=== PATIENT | male | born 1965 | race Caucasian/White ===

== ENCOUNTER 2021-12-25 16:20 | Inpatient (IN) | payer OTHER ==
[2021-12-25 17:54] VITALS: BMI 20.7
[2021-12-25] MEDS ORDERED: IBUPROFEN 400 MG TABLET (FP) PO PRN (22:12)
[2021-12-25] MEDS ORDERED: MAGNESIUM CITRATE 300 ML BOTTLE PO PRN (22:12)
[2021-12-25] MEDS ORDERED: hydrOXYzine PAMOATE 25 MG CAPSULE (FP) PO PRN (22:12)
[2021-12-25] MEDS ORDERED: BENZOCAINE/MENTHOL (CHLORASEPTIC ) LOZENGE MM PRN (22:12)
[2021-12-25] MEDS ORDERED: MAG HYDROX/AL HYDROX/SIMETH 30 ML UNIT-DOSE CUP PO PRN (22:12)
[2021-12-25] MEDS ORDERED: P-EPHED 60MG/TRIPROLIDI 2.5MG TABLET PO PRN (22:12)
[2021-12-25] MEDS ORDERED: MAGNESIUM HYDROX 2400MG/30ML ORAL SUSPENSION 30 ML CUP PO PRN (22:12)
[2021-12-25] MEDS ORDERED: LOPERAMIDE HCL 2 MG CAPSULE PO PRN (22:12)
[2021-12-25] MEDS ORDERED: NICOTINE 10 MG CARTRIDGE (INHALER) IH PRN (22:12)
[2021-12-25] MEDS ORDERED: ACETAMINOPHEN 325 MG TABLET (FP) PO PRN (22:12)
[2021-12-25] MEDS ORDERED: guaiFENesin 200 MG/10 ML 10 ML UNIT-DOSE CUPS PO PRN (22:12)
[2021-12-25] MEDS ORDERED: NICOTINE POLACRILEX 2 MG GUM BC PRN (22:12)
[2021-12-25] MEDS ORDERED: MELATONIN 5 MG TABLETS PO PRN (22:12)
[2021-12-26 00:38] VITALS: RESP 16
[2021-12-26] MEDS ORDERED: methaDONE HCL 10 MG TABLET PO SCH (09:45)
[2021-12-26] MEDS: PRENATAL VITAMINS W/ FOLIC ACID TABLET (FP) PO SCH (10:18)
[2021-12-26] MEDS: methaDONE 40 MG, methaDONE 20 MG PO SCH (10:19)
[2021-12-26] MEDS: THIAMINE HCL 100 MG TABLET (FP) PO SCH (21:50)
[2021-12-26] MEDS: traZODone HCL 50 MG TABLET (FP) PO SCH (21:50)
[2021-12-26] MEDS: risperiDONE 1 MG TABLET PO SCH (21:50)
[2021-12-27] MEDS: methaDONE 40 MG, methaDONE 20 MG PO SCH (07:40)
[2021-12-27] MEDS: PRENATAL VITAMINS W/ FOLIC ACID TABLET (FP) PO SCH (10:30)
[2021-12-27] MEDS ORDERED: TUBERCULIN PPD 5 TU/0.1ML VIAL ID ONE (12:45)
[2021-12-27 21:00] VITALS: TEMP 98.4
[2021-12-27] MEDS: traZODone HCL 50 MG TABLET (FP) PO SCH (21:52)
[2021-12-27] MEDS: THIAMINE HCL 100 MG TABLET (FP) PO SCH (21:53)
[2021-12-27] MEDS: risperiDONE 1 MG TABLET PO SCH (21:53)
[2021-12-28 06:52] VITALS: BP 109/74; PULSE 65
[2021-12-28] MEDS: methaDONE 40 MG, methaDONE 20 MG PO SCH (07:10)
[2021-12-28] MEDS: PRENATAL VITAMINS W/ FOLIC ACID TABLET (FP) PO SCH (09:44)
[2021-12-28] MEDS ORDERED: PRENATAL VITAMINS W/ FOLIC ACID TABLET (FP) PO PRN (10:14)
== END 2021-12-28 11:10 | disposition left against medical advice (07) | DRG 770 ==
LOC: YASAS 16:20 → Y3E 23:08
PROVIDERS: ADMIT Allergy & Immunology; ATTEND Psychiatry & Neurology Pain Medicine
PROC: HZ42ZZZ Group Counseling for Substance Abuse Treatment, Cognitive-Behavioral (ICD-10-PCS; principal; 2021-12-25)
DX: F11.20 Opioid dependence, uncomplicated (principal); F14.20 Cocaine dependence, uncomplicated; F17.210 Nicotine dependence, cigarettes, uncomplicated; F20.9 Schizophrenia, unspecified; F19.282 Other psychoactive substance dependence with psychoactive substance-induced sleep disorder; F19.24 Other psychoactive substance dependence with psychoactive substance-induced mood disorder; B18.2 Chronic viral hepatitis C; Z86.19 Personal history of other infectious and parasitic diseases; Z86.69 Personal history of other diseases of the nervous system and sense organs; Z91.51 Personal history of suicidal behavior; Z28.310 Unvaccinated for COVID-19; Z28.9 Immunization not carried out for unspecified reason; Z56.0 Unemployment, unspecified; Z59.01 Sheltered homelessness
CPT/HCPCS: C9803-CS; J2794; U0003; U0005

== ENCOUNTER 2022-08-05 13:05 | Inpatient (IN) | payer OTHER ==
[2022-08-05 14:11] VITALS: BMI 24.3
[2022-08-05] MEDS ORDERED: NICOTINE 10 MG CARTRIDGE (INHALER) IH PRN (14:54)
[2022-08-05] MEDS ORDERED: guaiFENesin 600 MG TABLET.ER (FP) PO PRN (14:54)
[2022-08-05] MEDS ORDERED: AMMONIUM LACTATE 12% LOTION 225 GM BOTTLE TP PRN (14:54)
[2022-08-05] MEDS ORDERED: IBUPROFEN 400 MG TABLET (FP) PO PRN (14:54)
[2022-08-05] MEDS ORDERED: LOPERAMIDE HCL 2 MG CAPSULE PO PRN (14:54)
[2022-08-05] MEDS ORDERED: NALOXONE HCL (KLOXXADO) 8 MG SPRAY NS PRN (14:54)
[2022-08-05] MEDS ORDERED: BENZOCAINE/MENTHOL (CHLORASEPTIC ) LOZENGE MM PRN (14:54)
[2022-08-05] MEDS ORDERED: hydrOXYzine PAMOATE 25 MG CAPSULE (FP) PO PRN (14:54)
[2022-08-05] MEDS ORDERED: NALOXONE HCL 0.4 MG/ML VIAL IM PRN (14:54)
[2022-08-05] MEDS ORDERED: MAGNESIUM HYDROX 2400MG/30ML ORAL SUSPENSION 30 ML CUP PO PRN (14:54)
[2022-08-05] MEDS ORDERED: BENZONATATE 200 MG CAPSULE PO PRN (14:54)
[2022-08-05] MEDS ORDERED: ACETAMINOPHEN 325 MG TABLET (FP) PO PRN (14:54)
[2022-08-05] MEDS ORDERED: POLYETHYLENE GLYCOL (HEALTHYLAX) 3350 17 GM PACKET PO PRN (14:54)
[2022-08-05] MEDS ORDERED: COLLOIDAL OATMEAL 1 BAR EACH TP PRN (14:54)
[2022-08-05] MEDS ORDERED: MAG HYDROX/AL HYDROX/SIMETH 30 ML UNIT-DOSE CUP PO PRN (14:54)
[2022-08-05] MEDS ORDERED: NICOTINE POLACRILEX 2 MG GUM BUC PRN (14:54)
[2022-08-05] MEDS: THIAMINE HCL 100 MG TABLET (FP) PO SCH (21:33)
[2022-08-05] MEDS ORDERED: MELATONIN 5 MG TABLETS PO SCH (22:00)
[2022-08-06] MEDS ORDERED: methaDONE HCL 10 MG TABLET PO SCH (08:15)
[2022-08-06] MEDS: methaDONE 40 MG, methaDONE 30 MG PO SCH (09:46)
[2022-08-06] MEDS ORDERED: PRENATAL VITAMINS W/ FOLIC ACID TABLET (FP) PO SCH (10:00)
[2022-08-06] MEDS ORDERED: PRENATAL VITAMINS W/ FOLIC ACID TABLET (FP) PO PRN (10:36)
[2022-08-06 10:50] LABS: HEMATOCRIT 37.4 % (35.4-49); HEMOGLOBIN 12.9 GM/dL (11.7-16.9); MCH 30.4 pg (25.7-33.7); MCHC 34.4 g/dl (32.0-35.9); MEAN CELL VOLUME 88.3 fl (80-96); MEAN PLT VOLUME 8.3 fl (7.5-11.1); PLATELET COUNT 325 10^3/uL (134-434); RBC 4.23 M/mm3 (4.00-5.60); RDW 13.4 % (11.9-15.9); WHITE BLOOD COUNT 6.7 K/mm3 (4.0-10.0)
[2022-08-06 10:57] LABS: POTASSIUM 4.8 mmol/L (3.5-5.1)
[2022-08-06 11:02] LABS: ALBUMIN 2.9 g/dl (3.4-5.0); BLOOD UREA NITROGEN 13.1 mg/dL (7-18); CALCIUM 9.2 mg/dL (8.5-10.1)
[2022-08-06 11:05] LABS: CREATININE 0.9 mg/dL (0.55-1.3)
[2022-08-06 11:07] LABS: BILIRUBIN,TOTAL 0.6 mg/dL (0.2-1)
[2022-08-06 11:22] LABS: SYPHILIS W/ RPR CONF NON-REACTIVE (NONREACTIVE)
[2022-08-06] MEDS: THIAMINE HCL 100 MG TABLET (FP) PO SCH (21:33)
[2022-08-06] MEDS ORDERED: traZODone HCL 50 MG TABLET (FP) PO PRN (22:00)
[2022-08-07] MEDS: methaDONE 40 MG, methaDONE 30 MG PO SCH (07:02)
[2022-08-07] MEDS: THIAMINE HCL 100 MG TABLET (FP) PO SCH (21:51)
[2022-08-08] MEDS: methaDONE 40 MG, methaDONE 30 MG PO SCH (06:36)
[2022-08-08] MEDS: THIAMINE HCL 100 MG TABLET (FP) PO SCH (22:45)
[2022-08-09] MEDS: methaDONE 40 MG, methaDONE 30 MG PO SCH (06:21)
[2022-08-09] MEDS: IBUPROFEN 600 MG TABLET (FP) PO PRN (09:41)
[2022-08-09] MEDS: THIAMINE HCL 100 MG TABLET (FP) PO SCH (22:22)
[2022-08-10] MEDS: methaDONE 40 MG, methaDONE 30 MG PO SCH (06:16)
[2022-08-10] MEDS: CLINDAMYCIN PHOSPHATE 1% TOPICAL GEL 30 GM TUBE TP SCH ×2 (11:50→22:45)
[2022-08-10 15:30] LABS: PH,URINE 5.5 (5.0-8.0); URINE APPEARANCE CLEAR; URINE BILIRUBIN NEGATIVE (NEGATIVE); URINE COLOR YELLOW; URINE GLUCOSE (UA) NEGATIVE (NEGATIVE); URINE KETONE NEGATIVE (NEGATIVE); URINE LEUK ESTERASE NEGATIVE (NEGATIVE); URINE NITRITE NEGATIVE (NEGATIVE); URINE PROTEIN NEGATIVE (NEGATIVE); URINE UROBILINOGEN 0.2 mg/dL (0.2-1.0)
[2022-08-10] MEDS: THIAMINE HCL 100 MG TABLET (FP) PO SCH (22:45)
[2022-08-11] MEDS: methaDONE 40 MG, methaDONE 30 MG PO SCH (06:10)
[2022-08-11] MEDS: IBUPROFEN 600 MG TABLET (FP) PO PRN ×2 (07:04→19:55)
[2022-08-11] MEDS: CLINDAMYCIN PHOSPHATE 1% TOPICAL GEL 30 GM TUBE TP SCH ×2 (09:46→21:48)
[2022-08-11] MEDS: THIAMINE HCL 100 MG TABLET (FP) PO SCH (21:48)
[2022-08-12] MEDS: methaDONE 40 MG, methaDONE 30 MG PO SCH (06:01)
[2022-08-12 06:32] VITALS: RESP 16
[2022-08-12] MEDS: CLINDAMYCIN PHOSPHATE 1% TOPICAL GEL 30 GM TUBE TP SCH ×2 (10:09→21:29)
[2022-08-12] MEDS: IBUPROFEN 600 MG TABLET (FP) PO PRN (13:55)
[2022-08-12] MEDS: THIAMINE HCL 100 MG TABLET (FP) PO SCH (21:29)
[2022-08-13] MEDS: methaDONE 40 MG, methaDONE 30 MG PO SCH (06:12)
[2022-08-13 06:38] VITALS: BP 115/75; PULSE 58; TEMP 97.7
[2022-08-13] MEDS: CLINDAMYCIN PHOSPHATE 1% TOPICAL GEL 30 GM TUBE TP SCH (09:05)
== END 2022-08-13 10:29 | disposition home or self-care (01) | DRG 772 ==
LOC: YASAS 13:05 → Y3E 14:41
PROVIDERS: ADMIT Allergy & Immunology; ATTEND Psychiatry & Neurology Pain Medicine
PROC: HZ42ZZZ Group Counseling for Substance Abuse Treatment, Cognitive-Behavioral (ICD-10-PCS; principal; 2022-08-05)
DX: F11.20 Opioid dependence, uncomplicated (principal); F14.20 Cocaine dependence, uncomplicated; F17.210 Nicotine dependence, cigarettes, uncomplicated; F19.282 Other psychoactive substance dependence with psychoactive substance-induced sleep disorder; F19.24 Other psychoactive substance dependence with psychoactive substance-induced mood disorder; B18.2 Chronic viral hepatitis C; L97.928 Non-pressure chronic ulcer of unspecified part of left lower leg with other specified severity; L97.918 Non-pressure chronic ulcer of unspecified part of right lower leg with other specified severity; L08.9 Local infection of the skin and subcutaneous tissue, unspecified; M19.011 Primary osteoarthritis, right shoulder; Z86.59 Personal history of other mental and behavioral disorders; Z86.69 Personal history of other diseases of the nervous system and sense organs
CPT/HCPCS: 36415; 80053; 80185; 81003; 85027; 86780; 86803; 87522; C9803-CS; U0003; U0005

== ENCOUNTER 2023-03-31 14:01 | Inpatient (IN) | payer OTHER ==
[2023-03-31 16:03] VITALS: BMI 22.6
[2023-03-31] MEDS ORDERED: MAG HYDROX/AL HYDROX/SIMETH 30 ML UNIT-DOSE CUP PO PRN (19:05)
[2023-03-31] MEDS ORDERED: COLLOIDAL OATMEAL 1 BAR EACH TP PRN (19:05)
[2023-03-31] MEDS ORDERED: MAGNESIUM HYDROX 2400MG/30ML ORAL SUSPENSION 30 ML CUP PO PRN (19:05)
[2023-03-31] MEDS ORDERED: LOPERAMIDE HCL 2 MG CAPSULE PO PRN (19:05)
[2023-03-31] MEDS ORDERED: NALOXONE HCL 0.4 MG/ML VIAL IM PRN (19:05)
[2023-03-31] MEDS ORDERED: BENZONATATE 200 MG CAPSULE PO PRN (19:05)
[2023-03-31] MEDS ORDERED: guaiFENesin 600 MG TABLET.ER (FP) PO PRN (19:05)
[2023-03-31] MEDS ORDERED: hydrOXYzine PAMOATE 25 MG CAPSULE (FP) PO PRN (19:05)
[2023-03-31] MEDS ORDERED: BENZOCAINE/MENTHOL (CHLORASEPTIC ) LOZENGE MM PRN (19:05)
[2023-03-31] MEDS ORDERED: NALOXONE HCL (KLOXXADO) 8 MG SPRAY NS PRN (19:05)
[2023-03-31] MEDS ORDERED: POLYETHYLENE GLYCOL (HEALTHYLAX) 3350 17 GM PACKET PO PRN (19:05)
[2023-04-01] MEDS: MELATONIN 5 MG TABLETS PO SCH ×2 (02:03→22:01)
[2023-04-01] MEDS: THIAMINE HCL 100 MG TABLET (FP) PO SCH ×2 (02:04→22:01)
[2023-04-01] MEDS: PRENATAL VITAMINS W/ FOLIC ACID TABLET (FP) PO SCH (10:21)
[2023-04-01] MEDS: methaDONE HCL 10 MG TABLET PO SCH (10:21)
[2023-04-01] MEDS ORDERED: TUBERCULIN PPD 5 TU/0.1ML VIAL ID ONE (10:56)
[2023-04-02] MEDS: methaDONE HCL 10 MG TABLET PO SCH (06:36)
[2023-04-02] MEDS: PRENATAL VITAMINS W/ FOLIC ACID TABLET (FP) PO SCH (10:15)
[2023-04-02 11:30] LABS: BASO % 0.7 % (0-2.0); EOS % 0.3 % (0-4.5); HEMATOCRIT 40.7 % (35.4-49); HEMOGLOBIN 13.6 GM/dL (11.7-16.9); LYMPH % 18.7 % (8-40); MCH 29.7 pg (25.7-33.7); MCHC 33.6 g/dl (32.0-35.9); MEAN CELL VOLUME 88.4 fl (80-96); MEAN PLT VOLUME 7.8 fl (7.5-11.1); MONO % 6.6 % (3.8-10.2); NEUT % 73.7 % (42.8-82.8); PLATELET COUNT 417 10^3/uL (134-434); WHITE BLOOD COUNT 8.1 K/mm3 (4.0-10.0)
[2023-04-02] MEDS: THIAMINE HCL 100 MG TABLET (FP) PO SCH (22:05)
[2023-04-02] MEDS: MELATONIN 5 MG TABLETS PO SCH (22:05)
[2023-04-03] MEDS: methaDONE HCL 10 MG TABLET PO SCH (06:12)
[2023-04-03] MEDS: ACETAMINOPHEN 325 MG TABLET (FP) PO PRN (06:13)
[2023-04-03] MEDS: IBUPROFEN 600 MG TABLET (FP) PO PRN (08:51)
[2023-04-03] MEDS: PRENATAL VITAMINS W/ FOLIC ACID TABLET (FP) PO SCH (10:04)
[2023-04-03 13:18] LABS: URINE APPEARANCE CLEAR; URINE BILIRUBIN 1+ (NEGATIVE); URINE COLOR DK YELLOW; URINE GLUCOSE (UA) NEGATIVE (NEGATIVE); URINE KETONE TRACE (NEGATIVE); URINE LEUK ESTERASE NEGATIVE (NEGATIVE); URINE NITRITE NEGATIVE (NEGATIVE); URINE PROTEIN TRACE (NEGATIVE)
[2023-04-03] MEDS: MELATONIN 5 MG TABLETS PO SCH (22:09)
[2023-04-03] MEDS: THIAMINE HCL 100 MG TABLET (FP) PO SCH (22:10)
[2023-04-04] MEDS: methaDONE HCL 10 MG TABLET PO SCH (06:10)
[2023-04-04] MEDS: IBUPROFEN 600 MG TABLET (FP) PO PRN (06:10)
[2023-04-04] MEDS: PRENATAL VITAMINS W/ FOLIC ACID TABLET (FP) PO SCH (10:52)
[2023-04-04] MEDS: ACETAMINOPHEN 325 MG TABLET (FP) PO PRN (14:59)
[2023-04-04] MEDS: MELATONIN 5 MG TABLETS PO SCH (21:40)
[2023-04-04] MEDS: THIAMINE HCL 100 MG TABLET (FP) PO SCH (21:40)
[2023-04-05] MEDS: IBUPROFEN 400 MG TABLET (FP) PO PRN (01:18)
[2023-04-05] MEDS: methaDONE HCL 10 MG TABLET PO SCH (06:19)
[2023-04-05] MEDS: IBUPROFEN 600 MG TABLET (FP) PO PRN ×3 (06:19→21:15)
[2023-04-05] MEDS: PRENATAL VITAMINS W/ FOLIC ACID TABLET (FP) PO SCH (10:26)
[2023-04-05] MEDS: TOLNAFTATE 1% CREAM 15 GM TUBE TP SCH ×2 (13:11→21:17)
[2023-04-05] MEDS: THIAMINE HCL 100 MG TABLET (FP) PO SCH (21:14)
[2023-04-05] MEDS: traZODone HCL 50 MG TABLET (FP) PO SCH (21:15)
[2023-04-05] MEDS: MELATONIN 5 MG TABLETS PO SCH (21:16)
[2023-04-05] MEDS ORDERED: traZODone HCL 100 MG TABLET (FP) PO SCH (22:00)
[2023-04-06] MEDS: IBUPROFEN 600 MG TABLET (FP) PO PRN ×2 (06:00→21:27)
[2023-04-06] MEDS: methaDONE HCL 10 MG TABLET PO SCH (06:00)
[2023-04-06] MEDS: PRENATAL VITAMINS W/ FOLIC ACID TABLET (FP) PO SCH (10:48)
[2023-04-06] MEDS: TOLNAFTATE 1% CREAM 15 GM TUBE TP SCH ×2 (10:48→21:26)
[2023-04-06] MEDS: MELATONIN 5 MG TABLETS PO SCH (21:26)
[2023-04-06] MEDS: traZODone HCL 50 MG TABLET (FP) PO SCH (21:26)
[2023-04-06] MEDS: THIAMINE HCL 100 MG TABLET (FP) PO SCH (21:26)
[2023-04-07] MEDS: methaDONE HCL 10 MG TABLET PO SCH (06:27)
[2023-04-07] MEDS: IBUPROFEN 400 MG TABLET (FP) PO PRN (06:27)
[2023-04-07] MEDS: PRENATAL VITAMINS W/ FOLIC ACID TABLET (FP) PO SCH (09:55)
[2023-04-07] MEDS: IBUPROFEN 600 MG TABLET (FP) PO PRN ×3 (09:55→21:29)
[2023-04-07] MEDS: TOLNAFTATE 1% CREAM 15 GM TUBE TP SCH ×2 (09:55→21:28)
[2023-04-07] MEDS: AMOX TR/POT CLAV 875MG/125MG TABLETS (FP) PO SCH (16:52)
[2023-04-07] MEDS: MELATONIN 5 MG TABLETS PO SCH (21:28)
[2023-04-07] MEDS: traZODone HCL 50 MG TABLET (FP) PO SCH (21:28)
[2023-04-07] MEDS: THIAMINE HCL 100 MG TABLET (FP) PO SCH (21:29)
[2023-04-08] MEDS: methaDONE HCL 10 MG TABLET PO SCH (06:02)
[2023-04-08] MEDS: IBUPROFEN 600 MG TABLET (FP) PO PRN (06:06)
[2023-04-08] MEDS: AMOX TR/POT CLAV 875MG/125MG TABLETS (FP) PO SCH ×2 (07:29→17:25)
[2023-04-08] MEDS ORDERED: HYDROCHLOROTHIAZIDE 12.5 MG CAPSULE (FP) PO SCH (10:00)
[2023-04-08] MEDS: TOLNAFTATE 1% CREAM 15 GM TUBE TP SCH ×2 (10:28→22:38)
[2023-04-08] MEDS: PRENATAL VITAMINS W/ FOLIC ACID TABLET (FP) PO SCH (10:28)
[2023-04-08] MEDS: HYDROCHLOROTHIAZIDE 12.5 MG CAPSULE (FP) PO SCH (10:28)
[2023-04-08] MEDS: IBUPROFEN 400 MG TABLET (FP) PO PRN (10:28)
[2023-04-08] MEDS: ACETAMINOPHEN 325 MG TABLET (FP) PO PRN (16:44)
[2023-04-08] MEDS: traZODone HCL 50 MG TABLET (FP) PO SCH (22:38)
[2023-04-08] MEDS: THIAMINE HCL 100 MG TABLET (FP) PO SCH (22:38)
[2023-04-08] MEDS: MELATONIN 5 MG TABLETS PO SCH (22:38)
[2023-04-09] MEDS: methaDONE HCL 10 MG TABLET PO SCH (06:04)
[2023-04-09] MEDS: IBUPROFEN 400 MG TABLET (FP) PO PRN (06:05)
[2023-04-09] MEDS: AMOX TR/POT CLAV 875MG/125MG TABLETS (FP) PO SCH ×2 (08:00→21:30)
[2023-04-09] MEDS: TOLNAFTATE 1% CREAM 15 GM TUBE TP SCH ×2 (10:51→21:31)
[2023-04-09] MEDS: PRENATAL VITAMINS W/ FOLIC ACID TABLET (FP) PO SCH (10:51)
[2023-04-09] MEDS: IBUPROFEN 600 MG TABLET (FP) PO PRN ×2 (10:52→21:32)
[2023-04-09] MEDS: HYDROCHLOROTHIAZIDE 12.5 MG CAPSULE (FP) PO SCH (11:22)
[2023-04-09] MEDS: THIAMINE HCL 100 MG TABLET (FP) PO SCH (21:30)
[2023-04-09] MEDS: MELATONIN 5 MG TABLETS PO SCH (21:30)
[2023-04-09] MEDS: traZODone HCL 50 MG TABLET (FP) PO SCH (21:30)
[2023-04-10] MEDS: methaDONE HCL 10 MG TABLET PO SCH (06:00)
[2023-04-10] MEDS: IBUPROFEN 600 MG TABLET (FP) PO PRN ×2 (06:01→21:04)
[2023-04-10] MEDS: AMOX TR/POT CLAV 875MG/125MG TABLETS (FP) PO SCH ×3 (07:34→21:04)
[2023-04-10] MEDS: HYDROCHLOROTHIAZIDE 12.5 MG CAPSULE (FP) PO SCH (10:11)
[2023-04-10] MEDS: TOLNAFTATE 1% CREAM 15 GM TUBE TP SCH ×2 (10:11→22:02)
[2023-04-10] MEDS: PRENATAL VITAMINS W/ FOLIC ACID TABLET (FP) PO SCH (10:11)
[2023-04-10] MEDS: traZODone HCL 50 MG TABLET (FP) PO SCH (22:02)
[2023-04-10] MEDS: THIAMINE HCL 100 MG TABLET (FP) PO SCH (22:02)
[2023-04-10] MEDS: MELATONIN 5 MG TABLETS PO SCH (22:02)
[2023-04-11] MEDS: methaDONE HCL 10 MG TABLET PO SCH (06:18)
[2023-04-11] MEDS: IBUPROFEN 400 MG TABLET (FP) PO PRN (06:20)
[2023-04-11 06:32] VITALS: RESP 16; TEMP 98
[2023-04-11] MEDS: AMOX TR/POT CLAV 875MG/125MG TABLETS (FP) PO SCH (07:19)
[2023-04-11 09:18] VITALS: BP 114/75; PULSE 76
[2023-04-11] MEDS: TOLNAFTATE 1% CREAM 15 GM TUBE TP SCH (10:38)
[2023-04-11] MEDS: HYDROCHLOROTHIAZIDE 12.5 MG CAPSULE (FP) PO SCH (10:38)
[2023-04-11] MEDS: PRENATAL VITAMINS W/ FOLIC ACID TABLET (FP) PO SCH (10:38)
== END 2023-04-11 12:45 | disposition home or self-care (01) | DRG 772 ==
LOC: YASAS 14:01 → Y3E 21:46
PROVIDERS: ADMIT Allergy & Immunology; ATTEND Psychiatry & Neurology Pain Medicine
PROC: HZ42ZZZ Group Counseling for Substance Abuse Treatment, Cognitive-Behavioral (ICD-10-PCS; principal; 2023-03-31)
DX: F14.20 Cocaine dependence, uncomplicated (principal); F11.20 Opioid dependence, uncomplicated; F17.210 Nicotine dependence, cigarettes, uncomplicated; F19.282 Other psychoactive substance dependence with psychoactive substance-induced sleep disorder; F19.24 Other psychoactive substance dependence with psychoactive substance-induced mood disorder; F29 Unspecified psychosis not due to a substance or known physiological condition; L03.116 Cellulitis of left lower limb; L60.8 Other nail disorders; B18.2 Chronic viral hepatitis C; Z86.69 Personal history of other diseases of the nervous system and sense organs; Z59.01 Sheltered homelessness
CPT/HCPCS: 0241U-QW; 36415; 81003; 85025; 86803; 87522